=== PATIENT | male | born 1960 | race Caucasian/White ===

== ENCOUNTER 2018-02-22 21:46 | Emergency (ER) | payer OTHER, MEDICARE ==
[2018-02-22] MEDS: LIDOCAINE 1% MDV 20ML VIAL SC (22:45)
[2018-02-22] MEDS: ADACEL/BOOSTRIX VACCINE (DIPHTH/PERTUSS/ACELL/TETANUS)0.5ML SYR (90715) IM (23:03)
== END 2018-02-22 23:23 | disposition home or self-care (01) ==
LOC: M ED 21:46
DX: S51.812A Laceration without foreign body of left forearm, initial encounter (principal); W26.0XXA Contact with knife, initial encounter; Y92.9 Unspecified place or not applicable
CPT/HCPCS: 90715

== ENCOUNTER 2019-11-17 03:19 | Emergency (ER) | payer MEDICARE, OTHER ==
[~2019-11-17 03:19] MED LIST: MORPHINE 4 MG/ML 1ML VIAL/SYRINGE (J2270) As Ordered ONE; ONDANSETRON 4MG/2ML VIAL As Ordered ONE; PLAV1TAB2 PO
[2019-11-17] MEDS ORDERED: ETOMIDATE INJ 20MG/10ML VIAL ONE (03:20)
[2019-11-17] MEDS ORDERED: ROCURONIUM BROMIDE 50 MG/5 ML VIAL ONE (03:20)
[2019-11-17] MEDS ORDERED: TENECTEPLASE 50 MG KIT (TNKase) (J3101 PER 1MG) As Ordered ONE (03:41)
[2019-11-17] MEDS ORDERED: HEPARIN 25,000 UNITS/250 ML D5W BAG (100 UNITS/ML) (J1644 PER 1000UNITS) As Ordered ONE (03:43)
[2019-11-17] MEDS ORDERED: HEPARIN SOD (PORCINE) 5000UNITS/ML 1ML VIAL/SYRINGE As Ordered ONE (03:43)
[2019-11-17] MEDS ORDERED: MORPHINE 4 MG/ML 1ML VIAL/SYRINGE (J2270) As Ordered ONE (04:24)
[2019-11-17] MEDS ORDERED: FUROSEMIDE 40MG/4ML VIAL (J1940) As Ordered ONE (04:31)
[2019-11-17] MEDS ORDERED: FAMOTIDINE 20 MG TAB As Ordered ONE (04:32)
[2019-11-17] MEDS ORDERED: IPRATROPIUM 0.5MG/ALBUTEROL 2.5MG INH SOL UD 3ML (DUONEB) As Ordered ONE (04:32)
[2019-11-17] MEDS ORDERED: NALOXONE INJ 0.4MG/1ML VIAL (J2310 PER 1MG) As Ordered ONE (04:54)
[2019-11-17] MEDS ORDERED: PROPOFOL 1,000 MG/100 ML VIAL As Ordered ONE (05:03)
[2019-11-17] MEDS ORDERED: EPINEPHrine 1MG/10ML SYRINGE 1.5IN ONE (13:00)
[2019-12-13 11:59] LABS: INR 0.99; PARTIAL THROMBOPLASTIN TIME 26.2 SECONDS (25.0-38.4); PROTHROMBIN TIME 13.3 SECONDS (11.8-14.0)
[2019-12-13 15:42] LABS: BASO # 0.1 10^3/uL (0.0-0.2); BASO % 0.7 % (0.0-1.0); EOS # 0.5 10^3/uL (0.0-0.5); EOS % 3.8 % (0.0-3.0); HEMATOCRIT 46.7 % (42.0-52.0); HEMOGLOBIN 15.6 g/dl (13.5-17.5); LYMPH % 23.6 % (24.0-44.0); MEAN CORPUSCULAR HEMOGLOBIN 28.8 pg (27.0-33.0); MEAN CORPUSCULAR HGB CONC 33.4 g/dl (32.0-36.5); MEAN CORPUSCULAR VOLUME 86.3 fl (80.0-96.0); MONO # 0.7 10^3/uL (0.0-0.8); MONO % 5.6 % (0.0-5.0); NEUTROPHILS # 8.3 10^3/uL (1.5-8.5); PLATELET COUNT, AUTOMATED 213 10^3/uL (150-450); RED BLOOD COUNT 5.41 10^6/uL (4.30-6.10); WHITE BLOOD COUNT 12.6 10^3/uL (4.0-10.0)
[2019-12-24 09:55] LABS: BLOOD UREA NITROGEN 16 MG/DL (7-18); CREATININE FOR GFR 1.22 MG/DL (0.70-1.30); GLOMERULAR FILTRATION RATE > 60.0 (>49); GLUCOSE, FASTING 205 MG/DL (70-100)
[2019-12-24 09:56] LABS: CALCIUM LEVEL 8.7 MG/DL (8.8-10.2); CARBON DIOXIDE LEVEL 24 mmol/L (20-29); CHLORIDE LEVEL 105 MEQ/L (98-107); CK-MB VALUE MASS 1.7 NG/ML (<3.6); CPK CREATINE PHOSPHOKINASE 61 U/L (39-308); MB/CK RELATIVE INDEX 2.78 (< OR =4); NT-PRO BNP 694 PG/ML (<125); POTASSIUM SERUM 3.5 MEQ/L (3.5-5.1); SODIUM LEVEL 140 MEQ/L (136-145); TROPONIN I 0.08 NG/ML (< 0.10)
--- NOTE | 2020-01-09 15:56 | ECGEPIP ---
SINUS RHYTHM ACUTE INFERORLATERAL [place] MOD. IVCD RAD SEE SCANNED DOWNTIME REPORT MTDD
== END 2019-11-17 05:20 | disposition expired ==
LOC: M ED 03:19
DX: I21.9 Acute myocardial infarction, unspecified (principal); I10 Essential (primary) hypertension; E78.49 Other hyperlipidemia; Z86.73 Personal history of transient ischemic attack (TIA), and cerebral infarction without residual deficits; Z88.0 Allergy status to penicillin; Z95.1 Presence of aortocoronary bypass graft; Z79.899 Other long term (current) drug therapy
CPT/HCPCS: 31500; 71250; 80048; 82550; 82553; 83880; 84484; 85025; 85610; 85730; 92950; 93005; 96374; 96375; 96376; 99285; J1644; J1940; J2270; J2310; J2405; J3101